=== PATIENT | female | born 1995 | race Caucasian/White ===

== ENCOUNTER 2017-01-11 19:33 | Emergency (ER) | payer MEDICAID, SELFPAY ==
[2017-01-11] MEDS ORDERED: Albuterol Sulfate 1.25 MG/3 ML NEB ONE (19:50)
[2017-01-11] MEDS ORDERED: predniSONE 20 MG TAB ONE (20:14)
--- NOTE | 2017-01-11 20:24 | RAD ---
TWO VIEWS CHEST: Comparison: 02-10-13 History: Cough for one week, right rib pain. FINDINGS: Two views of the chest show normal sized cardiomediastinal silhouette. There is no evidence of conso lidation, mass, or pleural effusion. The bones are unremarkable. IMPRESSION: No evidence of acute cardiopulmonary disease. POS: [facility]
[2017-01-11] MEDS ORDERED: AMOXicillin 250 MG CAP ONE (20:29)
== END 2017-01-11 20:39 | disposition home or self-care (01) ==
LOC: BURERS 19:33
DX: J45.901 Unspecified asthma with (acute) exacerbation (principal); I45.6 Pre-excitation syndrome; F17.210 Nicotine dependence, cigarettes, uncomplicated
CPT/HCPCS: 71020; 94640; 94760; J7506; J7620

== ENCOUNTER 2017-02-27 22:39 | Emergency (ER) | payer SELFPAY ==
[2017-02-27 23:00] LABS: #Basophils 0.1 thou/uL (0.0-0.2); #Eosinphils 0.1 thou/uL (0.0-0.7); #Lymphocytes 5.3 thou/uL (1.20-3.40); #Monocytes 0.5 thou/uL (0.11-0.59); #Neutrophils 6.5 thou/uL (1.40-6.50); %Basophils 1.1 % (0.0-1.0); %Eosinophils 0.9 % (0.0-10.0); %Lymphocytes 42.1 % (21.0-51.0); %Monocytes 4.1 % (0.0-10.0); %Neutrophils 51.8 % (42.0-75.0); Hemoglobin 14.9 g/dL (12.0-16.0); Mean Corpuscular HGB CONC 34.4 g/dL (32.0-36.0); Mean Corpuscular Hemoglobin 31.7 pg (27.0-31.0); Mean Corpuscular Volume 92.1 fl (81.0-99.0); Mean Platelet Volume 7.9 fL (7.4-10.4); Platelet Count 242 thou/uL (130-400); RBC Distribution Width 12.5 % (11.5-14.5); Red Blood Cell (RBC) Count 4.69 mill/uL (4.20-5.40); White Blood Cell (WBC) Count 12.5 thou/uL (4.8-10.8)
[2017-02-27 23:01] LABS: BHCG - Serum NEGATIVE (NEGATIVE); Pregs Control Background? CLEAR/WHITE (CLR/WHITE); Pregs Control Bar Appear? YES (CONTROL BAR)
[2017-02-27 23:15] LABS: ALT (SGPT) 8 U/L (8-55); AST (SGOT) 15 U/L (5-34); Albumin 4.1 g/dL (3.5-5.0); Alcohol 186 mg/dL (Less than 10); Alkaline Phosphatase 72 U/L (40-150); Anion Gap 12 mmol/L (10-20); BUN (Urea Nitrogen) 10 mg/dL (7.0-18.7); Bilirubin, Total 0.2 mg/dL (0.2-1.2); Calc. Creatinine Clearance 0 mL/min (70-130); Calcium 8.9 mg/dL (7.8-10.44); Carbon Dioxide 24 mmol/L (22-29); Chloride 109 mmol/L (98-107); Estimated GFR-MDRD 80; Globulin 2.9 g/dL (2.4-3.5); Glucose 97 mg/dL (70-105); Lipase 14 U/L (8-78); Potassium 3.3 mmol/L (3.5-5.1); Sodium 142 mmol/L (136-145)
[2017-02-27] MEDS ORDERED: Adacel (T-DAP) 0.5 ML VIAL ONE (23:51)
[2017-02-28] MEDS ORDERED: Acetaminophen 500 MG TAB ONE (00:14)
--- NOTE | 2017-02-28 10:45 | RAD ---
RIGHT HAND 3 VIEWS: Date: 02/27/17 FINDINGS: No fracture or opaque foreign body seen. All bones appeared intact. A few bright flecks seen over th e fingers appear to be film artifact. IMPRESSION: No significant findings. POS: HOME
--- NOTE | 2017-02-28 11:00 | RAD ---
LEFT HAND 3 VIEWS: Date: 02/27/17 FINDINGS: No fracture was appreciated. All bones appeared intact. There may be an opaque foreign body in the s oft tissues at the base of the index finger or at least on the patient's skin here. IMPRESSION: No fracture seen. POS: HOME
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
== END 2017-02-28 00:35 | disposition home or self-care (01) ==
LOC: BURERS 22:39
DX: S40.022A Contusion of left upper arm, initial encounter (principal); S50.12XA Contusion of left forearm, initial encounter; S00.01XA Abrasion of scalp, initial encounter; S80.211A Abrasion, right knee, initial encounter; S70.312A Abrasion, left thigh, initial encounter; F10.129 Alcohol abuse with intoxication, unspecified; G40.909 Epilepsy, unspecified, not intractable, without status epilepticus; F17.210 Nicotine dependence, cigarettes, uncomplicated; Z79.899 Other long term (current) drug therapy; Y04.8XXA Assault by other bodily force, initial encounter
CPT/HCPCS: 70450; 70486; 72125; 80053; 80307; 83690; 84703; 85025; 90471; 90715; 94760

== ENCOUNTER 2017-05-15 11:03 | Emergency (ER) | payer OTHER, SELFPAY ==
[2017-05-15] MEDS ORDERED: Azithromycin 250 MG TAB ONE (11:44)
[2017-05-15] MEDS ORDERED: Lidocaine 1% 20 ML MDV ONE (11:45)
[2017-05-15] MEDS ORDERED: cefTRIAXone\\ROCEPHIN 500 MG VIAL ONE (11:45)
[2017-05-17 20:40] LABS: Chlamydia by PCR Not Detected (NotDetected); GC by PCR Not Detected (NotDetected)
== END 2017-05-15 12:07 | disposition home or self-care (01) ==
LOC: BURERS 11:03
DX: O98.311 Other infections with a predominantly sexual mode of transmission complicating pregnancy, first trimester (principal); A64 Unspecified sexually transmitted disease; F17.210 Nicotine dependence, cigarettes, uncomplicated; F32.9 Major depressive disorder, single episode, unspecified; Z98.890 Other specified postprocedural states; Z3A.10 10 weeks gestation of pregnancy
CPT/HCPCS: 87480; 87491; 87510; 87591; 87660; 96372; J0696; J2001

== ENCOUNTER 2018-02-07 16:11 | Emergency (ER) | payer MEDICAID, SELFPAY ==
[2018-02-07] MEDS ORDERED: HYDROcodone/Acetaminophen 5/325 mg Tablet ONE (17:00)
--- NOTE | 2018-02-07 20:09 | RAD ---
LEFT ANKLE THREE VIEWS: Date: 02-07-18 FINDINGS: Fractures are present involving at least the medial and lateral malleoli. There is slight displacemen t of the fractures with slight widening of the ankle mortise. The lateral fracture is somewhat irregu lar. It is difficult on the lateral view to tell if there has been a fracture through the posterior p art of the distal tibia or if what I am seeing here are fractures from the overlying fibular fracture . IMPRESSION: Bimalleolar fracture with displacement. POS: HOME
--- NOTE | 2018-02-07 20:15 | RAD ---
RIGHT FOURTH AND FIFTH FINGERS: Date: 02-07-18 FINDINGS: A slightly displaced fracture at the base of the middle phalanx of the ring finger is noted at the PI P joint. Additionally, there is a nondisplaced longitudinal fracture into the proximal phalanx of the ring finger. This appears to extend into the fourth MCP joint. The fifth finger appears intact. IMPRESSION: Fractures of the proximal and middle phalanges of the ring finger. POS: HOME
== END 2018-02-07 17:37 | disposition home or self-care (01) ==
LOC: BURERS 16:11
DX: S82.842A Displaced bimalleolar fracture of left lower leg, initial encounter for closed fracture (principal); S62.614A Displaced fracture of proximal phalanx of right ring finger, initial encounter for closed fracture; I45.6 Pre-excitation syndrome; G40.909 Epilepsy, unspecified, not intractable, without status epilepticus; F31.9 Bipolar disorder, unspecified; F17.210 Nicotine dependence, cigarettes, uncomplicated; X50.1XXA Overexertion from prolonged static or awkward postures, initial encounter

== ENCOUNTER 2025-09-01 19:42 | Emergency (ER) | payer SELFPAY | END 2025-09-01 20:39 | disposition home or self-care (01) | LOC: BURERS 19:42 | DX: R42 Dizziness and giddiness (principal); R29.700 NIHSS score 0; F17.210 Nicotine dependence, cigarettes, uncomplicated | CPT/HCPCS: 99283 ==

== ENCOUNTER 2025-09-04 10:52 | Emergency (ER) | payer SELFPAY ==
[2025-09-04] MEDS ORDERED: Acetaminophen 500 MG TAB ONE (11:21)
== END 2025-09-04 11:28 | disposition home or self-care (01) ==
LOC: BURERS 10:52
DX: H81.399 Other peripheral vertigo, unspecified ear (principal); R29.700 NIHSS score 0; I10 Essential (primary) hypertension; F17.210 Nicotine dependence, cigarettes, uncomplicated
CPT/HCPCS: 99283; Q0162